=== PATIENT | male | born 1990 | race Caucasian/White ===

== ENCOUNTER 2023-07-17 23:11 | Emergency (ER) | payer OTHER, SELFPAY ==
--- NOTE | ~2023-07-17 | XR_ITS ---
Right Hand Technique: PA, oblique, and lateral views were obtained. Clinical History: Trauma Findings: No acute fracture or dislocation is seen. Osseous alignment is anatomic. Joint spaces are p reserved. There is a small metallic foreign body at the first interspace, approximately at the level of the mid second metacarpal shaft or first metacarpal phalangeal joint. Impression: Small metallic foreign body at the first interspace, as detailed above. Reviewed, dictated and finalized at location M. Impression: Small metallic foreign body at the first interspace, as detailed above.
[2023-07-17 23:20] VITALS: BP 144/85; PULSE 65; RESP 16; TEMP 36.9; O2SAT 99
--- NOTE | 2023-07-18 00:39 | ED.GENADULT ---
HPI - General Adult General Chief complaint: Extremity Injury, Upper Stated complaint: right hand/thumb injury at work Time Seen by Provider: 07/18/23 00:29 Source: patient Mode of arrival: ambulatory Limitations: no limitations History of Present Illness HPI narrative: This is a 33-year-old male who presents to the ED with chief complaint of right hand injury that occurred about an hour prior to arrival. Patient states he was working with engine piston when it fell from above head and smashed his hand in between a crank. Reports pain to the right thumb as well as laceration to the palmar side of the thumb. Reports tetanus up-to-date. Denies any further sites of pain or injury or numbness or weakness Related Data Allergies Allergy/AdvReac Type Severity Reaction Status Date / Time No Known Allergies Allergy Verified 07/17/23 23:12 Review of Systems Review of Systems: All systems as dictated in HPI Exam Narrative: GENERAL: Well-appearing, well-nourished, and in no acute distress. HEAD: Normocephalic, atraumatic. EYES: PERRLA and EOMI. ENT: Nares clear, no rhinorrhea or epistaxis. Mucous membranes moist. Oropharynx without tonsillar hypertrophy exudate or other lesions. NECK: Supple. No adenopathy or masses. CHEST: No respiratory distress. Clear to auscultation. No wheezes rales or rhonchi HEART: Regular rate and rhythm. No murmur heard. Normal peripheral pulses. ABDOMEN: Soft, nontender, nondistended, normal active bowel sounds. MSK: Normal range of motion. No edema. Range of motion and strength fully intact to the right thumb. SKIN: 1.5 cm laceration noted to the palmar aspect of the right thumb proximally. Bleeding controlled. Cap refill normal NEURO: Alert and oriented x3. No focal deficits. PSYCH: Normal mood and affect. Course Vital Signs Vital signs: Vital Signs Temperature 98.5 F 07/17/23 23:20 Pulse Rate 65 07/17/23 23:20 Respiratory Rate 16 07/17/23 23:20 Blood Pressure 144/85 H 07/17/23 23:20 Pulse Oximetry 99 07/17/23 23:20 Oxygen Delivery Room Air 07/17/23 23:20 Temperature 97.5 F L 07/18/23 02:33 Pulse Rate 67 07/18/23 02:33 Respiratory Rate 15 07/18/23 02:33 Blood Pressure 135/77 07/18/23 02:33 Pulse Oximetry 99 07/18/23 02:33 Oxygen Delivery Room Air 07/17/23 23:20 Procedures Laceration Laceration 1: Date: 07/18/23 Time: 01:54 Site: hand Side (If applicable): right Size (cm): 1.5 Description: linear Depth: simple, single layer Local Anesthetic: lidocaine 1% Amount of anesthesia used (mL): 2 Pre-repair: wound explored, irrigated extensively and deep structures intact ====== Skin Level ====== Skin layer closed with: nylon Size (cm): 5-0 Number of sutures: 4 Technique: simple, interrupted ====== Subcutaneous Layer ====== ====== Muscle Layer ====== ====== Tendon Layer ====== Dressing: Non adherent Medical Decision Making MDM Narrative Medical decision making narrative: This is a 33 year old male who presents to the ED with chief complaint of right thumb injury with laceration. Vitals are normal. Exam shows 1.5 cm simple laceration to the palmar aspect of the proximal thumb. Bleeding controlled. No tendon involvement. The wound was well cleansed and irrigated here in the ED. closed primarily with sutures. X-rays of the right hand show no evidence of acute fracture or dislocation. Metallic foreign body, 4 mm, in the 1st/2nd inter webspace. When discussing this with the patient he reassures that the metallic body has been there for quite some time due to an old injury. This piece of metal seen on x-ray does not correlate with where his laceration is today. No foreign body seen on exam. Laceration instructions were given. Pt will be discharged in stable condition. Return precautions given and supportive measure
[2023-07-18 02:33] VITALS: BP 135/77; PULSE 67; RESP 15; TEMP 36.4; O2SAT 99
== END 2023-07-18 02:33 | disposition home or self-care (01) ==
PROVIDERS: Emergency Provider Physician Assistant
DX: S61.011A Laceration without foreign body of right thumb without damage to nail, initial encounter (principal); W20.8XXA Other cause of strike by thrown, projected or falling object, initial encounter
CPT/HCPCS: 12001; 73130; 99283